=== PATIENT | male | born 1990 | race Caucasian/White ===

== ENCOUNTER 2016-10-05 03:21 | Emergency (ER) | payer OTHER ==
[2016-10-05 03:28] VITALS: BP 147/89; PULSE 121; RESP 20; TEMP 98.4; O2SAT 97
[2016-10-05] MEDS ORDERED: TDAP ADULT 0.5 ML INJ (BOOSTRIX) IM ONE (03:41)
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
== END 2016-10-05 04:20 | disposition home or self-care (01) ==
PROC: 0JQP3ZZ Repair Left Lower Leg Subcutaneous Tissue and Fascia, Percutaneous Approach (ICD-10-PCS; principal; 2016-10-05)
DX: S81.012A Laceration without foreign body, left knee, initial encounter (principal); Z23 Encounter for immunization; W05.2XXA Fall from non-moving motorized mobility scooter, initial encounter; Y92.410 Unspecified street and highway as the place of occurrence of the external cause; Y99.8 Other external cause status; Y93.89 Activity, other specified

== ENCOUNTER → 2017-01-27 | Outpatient (CLI) | payer OTHER | LOC: FIMAGING 21:10 | PROVIDERS: ATTEND Internal Medicine | DX: M54.2 Cervicalgia (principal); M54.6 Pain in thoracic spine ==

== ENCOUNTER 2017-03-14 00:37 | Emergency (ER) | payer OTHER ==
[2017-03-14 00:43] VITALS: RESP 18; TEMP 98.1
--- NOTE | 2017-03-14 01:48 | EDPHY ---
H & P Stated Complaint: R THUMB LACERATION HPI/ROS: HPI The patient presents with right thumb laceration which occurred just prior to arrival when he injured his thumb while making [employer] ornament. A stainless steel drill bit cut into his thumb. He has had bleeding. He has had history of sutures multiple times before. His tetanus vaccine is up-to-date per his report. He denies any numbness or tingling or difficulty moving his thumb. REVIEW OF SYSTEMS Constitutional: No fever, no chills. Eyes: No discharge. ENT: No sore throat. Cardiovascular: No chest pain, no palpitations. Respiratory: No cough, no shortness of breath. Gastrointestinal: No abdominal pain, no vomiting. Genitourinary: No hematuria. Musculoskeletal: No back pain. Skin: No rashes. Neurological: No headache. PMHx: Healthy Soc Hx: Works at a [employer] PHYSICAL General Appearance: Alert, no distress Eyes: Pupils equal and round no pallor or injection ENT, Mouth: Mucous membranes moist Respiratory: Breathing comfortably Neurological: A&O, sensation intact to light touch of his thumb, full range of motion of his thumb Skin: Warm and dry, no rashes Extremities: Right thumb with 2 cm laceration overlying the extensor portion of the IP joint Psychiatric: Patient is oriented X 3, there is no agitation Source: Patient Exam Limitations: No limitations - Personal History Current Tetanus/Diphtheria Vaccine: Yes Current Tetanus Diphtheria and Acellular Pertussis (TDAP): Yes - Medical/Surgical History Hx Asthma: No Hx Chronic Respiratory Disease: No Hx Diabetes: No Hx Cardiac Disease: No Hx Renal Disease: No Hx Cirrhosis: No Hx Alcoholism: No Hx HIV/AIDS: No Hx Splenectomy or Spleen Trauma: Yes Other PMH: R shoulder repair - Social History Smoking Status: Never smoked Constitutional: Initial Vital Signs Temperature (C) 36.7 C 03/14/17 00:38 Heart Rate 92 03/14/17 00:38 Respiratory Rate 18 03/14/17 00:38 Blood Pressure 140/81 H 03/14/17 00:38 O2 Sat (%) 95 03/14/17 00:38 O2 Delivery Mode Room Air Allergies/Adverse Reactions: No Known Allergies Allergy (Verified 03/14/17 00:43) Home Medications: Medication Instructions Recorded NK [No Known Home Meds] 10/05/16 Medical Decision Making Procedures: LACERATION REPAIR Procedure: Laceration repair. Verbal consent was obtained from the patient. The linear 2 cm laceration on the right dorsal thumb was anesthetized using bupivacaine in a digital block, total of 3 mL. The wound was scrubbed, draped and explored to its base with a gloved finger. There were no deep structures involved. No tendon injury was identified. . The wound was repaired with Prolene 4-0, simple interrupted sutures, total of 5. The wound repair was simple. The procedure was performed by myself. Differential Diagnosis: 26-year-old male presents with right thumb laceration on metal drill bit just prior to arrival. Neurovascularly intact, no signs of tendon involvement. Black repaired by me in the emergency department. Patient is to return in 7 days for suture removal. Departure - Departure Disposition: Home, Routine, Self-Care Clinical Impression: Laceration of thumb Qualifiers: Encounter type: initial encounter Damage to nail status: without damage Foreign body presence: without foreign body Laterality: right Qualified Code(s) : S61.011A - Laceration without foreign body of right thumb without damage to nail, initial encounter Condition: Good Instructions: Care For Your Stitches (ED), Finger Laceration (ED) Additional Instructions: Please leave the dressing on for the next 24 hr. Then you can take it off to get it wet. You should have the stitches removed in 7 days. Referrals: Michaelle Campbell CNP [Primary Care Provider] - As per Instructions
[2017-03-14 02:15] VITALS: BP 125/72; PULSE 62; O2SAT 96
== END 2017-03-14 02:15 | disposition home or self-care (01) ==
PROC: 0HQFXZZ Repair Right Hand Skin, External Approach (ICD-10-PCS; principal; 2017-03-14)
DX: S61.011A Laceration without foreign body of right thumb without damage to nail, initial encounter (principal); W26.8XXA Contact with other sharp object(s), not elsewhere classified, initial encounter; Y99.8 Other external cause status; Y93.89 Activity, other specified
CPT/HCPCS: L3925

== ENCOUNTER 2018-04-28 12:31 | Emergency (ER) | payer OTHER ==
[2018-04-28] MEDS ORDERED: IBUPROFEN 600 MG TAB PO ONE (13:34)
--- NOTE | 2018-04-28 13:38 | EDPHY ---
H & P Time Seen by Provider: 04/28/18 13:13 HPI/ROS: CHIEF COMPLAINT: Bilateral hand numbness and pain HISTORY OF PRESENT ILLNESS: 27-year-old male presents with bilateral hand numbness and pain. 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 Initially he had tingling in the right thumb index and middle fingers. The tingling increased and was associated with pain in the middle the night. He wore a wrist splint for a while, with some relief. However he now has tingling in both hands in a similar distribution. He awakens several times at night because of achiness in the hands. No neck pain and no weakness. Taking Tylenol with minimal relief. ROS: No weakness, bleeding, syncopal episode, recent injury. Past Medical/Surgical History: Denies Smoking Status: Never smoked Physical Exam: Alert and oriented, pleasant Neck: Nontender, range of motion without pain Extremities: Bilateral hands-positive Tinel sign, decreased sensation to light touch involving the thumb index and middle fingers. Normal strength, including opposition and pinching Skin: Intact Neuro: Motor and sensory intact Vascular: Capillary refill brisk distally, radial pulse 2 + bilaterally. Constitutional: Initial Vital Signs Temperature (C) 36.6 C 04/28/18 12:39 Heart Rate 91 04/28/18 12:39 Respiratory Rate 16 04/28/18 12:39 Blood Pressure 151/89 H 04/28/18 12:39 O2 Sat (%) 98 04/28/18 12:39 O2 Delivery Mode Room Air Allergies/Adverse Reactions: No Known Allergies Allergy (Verified 04/28/18 12:39) Home Medications: Medication Instructions Recorded NK [No Known Home Meds] 10/05/16 Medical Decision Making ED Course/Re-evaluation: This patient presents with bilateral carpal tunnel syndrome. He will start ibuprofen 3 times daily, avoid repetitive activity and wear wrist splints. He was strongly encouraged to follow up with Hand surgery. Warning signs discussed. Departure - Departure Disposition: Home, Routine, Self-Care Clinical Impression: Bilateral carpal tunnel syndrome Condition: Good Instructions: Additional Information Additional Instructions: Ibuprofen 600 mg 3 times daily while the pain persists. Wear the wrist splints at night. Consider wearing them during the day as well if the splint help alleviate the discomfort. Referrals: Cindy Flores MD [Medical Doctor] - 5-7 days, call for appt. (Call to make an appointment. )
[2018-04-28 14:03] VITALS: BP 148/85
== END 2018-04-28 14:03 | disposition home or self-care (01) ==
DX: G56.03 Carpal tunnel syndrome, bilateral upper limbs (principal); X50.0XXA Overexertion from strenuous movement or load, initial encounter; Y99.0 Civilian activity done for income or pay
CPT/HCPCS: L3807